=== PATIENT | female | born 1950 | race Caucasian/White ===

== ENCOUNTER 2017-01-16 18:18 | Emergency (ER) | payer MEDICARE, OTHER ==
[~2017-01-16] VITALS: Ht 162.6 cm; Wt 68.0 kg
[~2017-01-16 18:18] MED LIST: ACYC800T PO; CIPR500S2 PO; ESCT10T PO; EST45C VG; ESTR0.3T PO; HYDR-3720 PO
[2017-01-16] MEDS ORDERED: TETANUS,DIPTH,PERTUSS P/F (BOOSTRIX) 0.5 ML VIAL IM STA (18:47)
--- NOTE | 2017-01-16 18:47 | ED Upper Extremity ---
General Chief Complaint: Laceration Stated Complaint: RT THUMB LACERATION Source: patient Exam Limitations: no limitations History of Present Illness Time seen by provider: 18:38 Initial Comments Here with report of thumb laceration to the right thumb. She was opening a pop top on a can of chicken gravy and she asked him to cut her finger on the side. Tetanus is not up-to-date. Bleeding is controlled with direct pressure. Denies other injury. Onset: just prior to arrival (1 hour ago) Severity: mild Pain/Injury Location: right thumb Method of Injury: incised Modifying Factors: Improves With Immobilization, Worse With Movement, Improves With Rest Allergies and Home Medications Allergies Coded Allergies: Prednisone (Unverified Allergy, 01/22/11) Home Medications Ciprofloxacin 500 Mg/5 Ml [facility]rec, 500 MG PO BID for 7 Days, (Reported) Escitalopram Oxalate 10 Mg Tablet, 1 EACH PO DAILY, (Reported) Estrogens Conjugated 0.3 Mg Tab, 0.3 MG PO DAILY, (Reported) Estrogens Conjugated 45 Gm Cr, 1 GM VG HS for 14 Days, (Reported) 1 APPLICATORFUL Hydrocodone Bit/Acetaminophen 1 Ea Tab, 1-2 EA PO Q4HR PRN, (Reported) Constitutional: no symptoms reported Respiratory: no symptoms reported Cardiovascular: no symptoms reported Musculoskeletal: no symptoms reported Skin: see HPI, lesions Past Kccseme-Lnptbk-Yfkemt Hx Patient Social History Alcohol Use: Denies Use Recreational Drug Use: No Smoking Status: Never a Smoker Recent Foreign Travel: No Contact w/Someone Who Travel: No Reproductive System Hx Reproductive Disorders: No Psychosocial History of Psychiatric Problem: Yes Behavioral Health Disorders: Depression Family Medical History Significant Family History: No Pertinent Family Hx Physical Exam Vital Signs Vital Sign - Last 12Hours 01/16/17 18:45 Temp 98.1 Pulse 78 Resp 18 B/P (MAP) 123/81 Pulse Ox 97 O2 Delivery Room Air Capillary Refill : General Appearance: WD/WN, no apparent distress Cardiovascular: regular rate, rhythm, no murmur Respiratory: lungs clear, normal breath sounds Hand: Right, laceration (right thumb with curvilinear 1.5 cm laceration that is superficial) Neurologic/Psychiatric: alert, oriented x 3 Skin: normal color, warm/dry Laceration Repair : Wound Location: Upper Extremities Other Wound Location Right thumb index finger side. Wound Length (cm): 1.5 Wound's Depth, Shape: superficial Wound Explored: contaminated Irrigated w/ Saline (ccs): 20 Betadine Prep?: No Other Closure Supply: Wound Adhesive Progress Washed with Betasept and copious fluid. Closed with skin glue by Mingo Winchester APRN. Progress/Results/Core Measures Results/Orders My Orders Orders - ALISON PERDUE MD Dipht,Pertuss(Acell),Tet Adult (Boostrix (01/16/17 18:47) Vital Signs/I&O Vital Sign - Last 12Hours 01/16/17 18:45 Temp 98.1 Pulse 78 Resp 18 B/P (MAP) 123/81 Pulse Ox 97 O2 Delivery Room Air Progress Note : Progress Note Seen and evaluated. Right thumb laceration cleaned and repaired by Mingo Winchester APRN. Close skin glue. Tetanus updated. Discharged home with return precautions. Patient verbalize understanding instructions and agreement with plan. Departure Impression Impression: Primary Impression: Thumb laceration Qualified Codes: S61.011A - Laceration without foreign body of right thumb without damage to nail, initial encounter Disposition: 01 HOME, SELF-CARE Condition: Improved Departure-Patient Inst. Decision time for Depature: 18:51 Referrals: CHARITO JEFFERSON MD (PCP/Family) Primary Care Physician Patient Instructions: Laceration Repair With Glue (DC) Add. Discharge Instructions: All discharge instructions reviewed with patient and/or family. Voiced understanding. Keep wound clean and dry. You may shower but do not soak wound for prolonged periods of time. Skin glue will come off over the next 4-5 days. Do not apply antibiotics over the wound. You may use a dry Band-Aid over wound protect the wound. Return for worse pain, fever, red streaks up the hand, foul-smelling drainage or other concerns as needed. Your tetanus shot was updated today. ALISON PERDUE MD Jan 16, 2017 18:47
[2017-01-16 19:04] VITALS: BP 123/81
== END 2017-01-16 19:03 | disposition home or self-care (01) ==
LOC: EDUNIT# 18:18 → ER 18:20
DX: S61.011A Laceration without foreign body of right thumb without damage to nail, initial encounter (principal); F32.9 Major depressive disorder, single episode, unspecified; Z23 Encounter for immunization; W45.8XXA Other foreign body or object entering through skin, initial encounter
CPT/HCPCS: 12001; 90471; 90715

== ENCOUNTER → 2018-02-24 | Outpatient (CLI) | payer MEDICARE, OTHER ==
--- NOTE | 2018-02-24 12:49 | Diagnostic Imaging Report ---
EXAMINATION: Left elbow at 10:54 a.m. INDICATION: Elbow pain. FINDINGS: Three views were obtained. There are no prior studies available for comparison. There is no fracture, dislocation, or acute bony abnormality evident. However on the lateral view, there are few small calcific densities lying anterior to the distal humerus. It is possible that these could be within the joint space and these may represent loose bodies. The elbow joint itself is fairly well maintained. The soft tissues are unremarkable. IMPRESSION: 1. There is no evidence for an acute bony abnormality. 2. The calcific densities lying anterior to the distal humerus seen on the lateral view only may be intra-articular. MRI would be recommended for further evaluation. Dictated by: Dictated on workstation # [id number]
== END ==
LOC: RAD 10:19
PROVIDERS: ATTEND Family Medicine
DX: M25.522 Pain in left elbow (principal)
CPT/HCPCS: 73080

== ENCOUNTER → 2018-03-19 | Outpatient (CLI) | payer MEDICARE, OTHER ==
--- NOTE | 2018-03-19 11:46 | Diagnostic Imaging Report ---
Indication: Abnormal screening mammogram one year ago on 02/27/2017. Screening mammogram recommended additional mammographic views however patient failed to return for additional views. Patient returns today for a bilateral breast ultrasound. Right breast: Sonographic interrogation of the upper right breast was performed from essentially the 9 o'clock to 3 o'clock location as well as retroareolar region. No sonographic abnormality is seen. No solid or cystic mass is detected. Left breast: All 4 quadrants of the left breast as well as retroareolar and axillary regions was evaluated. No solid or cystic mass is seen. No sonographic abnormality is identified Impression: BI-RADS category 0 No sonographic abnormality is detected. Diagnostic mammography would still be recommended, per report one year ago to ensure stability of previously noted densities noted mammographically. ACR BI-RADS Category 0: Incomplete. (Needs additional imaging evaluation). Result letter will be mailed to the patient. Note: At least 10% of breast cancer is not imaged by mammography. Dictated by: Dictated on workstation # [id number]
== END ==
LOC: RAD 09:46
PROVIDERS: ATTEND Family Medicine
DX: N64.89 Other specified disorders of breast (principal)

== ENCOUNTER → 2020-02-29 | Outpatient (CLI) | payer MEDICARE, OTHER ==
--- NOTE | 2020-02-29 15:04 | Diagnostic Imaging Report ---
INDICATION: Postmenopausal female COMPARISON: None FINDINGS: AP Spine L1-L4: [BMD (g/cm2): 1.098] [T-Score: -0.9] [Z-Score: 0.6] [BMD Previous: NA] [BMD % Change: NA] LT Hip Neck: [BMD (g/cm2): 0.795] [T-Score: -1.8] [Z-Score: -0.2] LT Hip Total: [BMD (g/cm2):0.861] [T-Score:-1.2] [Z-Score: 0.2] [BMD Previous: NA] [BMD % Change: NA] RT Hip Neck: [BMD (g/cm2):0.806] [T-Score:-1.7] [Z-Score:-0.1] RT Hip Total: [BMD (g/cm2):0.818] [T-score:-1.5] [Z-Score:-0.2] [BMD Previous:NA] [BMD % Change:NA] *Indicates significant change from prior examination based on 95% confidence level. World Health Organization criteria for BMD interpretation classify patients as Normal (T-score at or above -1.0), Osteopenic (T-score between -1.0 and -2.5) or Osteoporotic (T-score at or below -2.5). LIMITATIONS AND MODIFICATION: None. FRACTURE RISK (FRAX SCORE): The ten year probability of (%): Major Osteoporotic Fracture: [10.7] Hip Fracture: [1.8] IMPRESSION: 1. Osteopenia (Low bone mass). 2. Baseline examination. 3. See below National Osteoporosis Foundation guidelines on when to potentially initiate pharmacologic therapy. Based on the National Osteoporosis Foundation Guidelines, pharmacologic treatment should be initiated in any of the following, unless clinical conditions suggest otherwise: * Any patient with prior fragility fracture of the hip or vertebrae. A spine fracture indicates 5X risk for subsequent spine fracture and 2X risk for subsequent hip fracture. * Osteoporosis (T-score <-2.5). * Postmenopausal women and men age 50 and older with low bone mass/osteopenia (T-score between -1.0 and -2.5) by DXA and 10-year major osteoporotic fracture greater than 20% or a 10-year probability of hip fracture greater than 3%. These fracture risks are supplied above in the FRAX score, if applicable. * Clinician judgement and/or patient preferences may indicate treatment for people with 10-year fracture probabilities above or below these levels. Dictated by: Dictated on workstation # [id number]
--- NOTE | 2020-02-29 15:05 | Diagnostic Imaging Report ---
PROCEDURE: US carotid duplex, bilateral. TECHNIQUE: Multiple real-time grayscale images were obtained over the carotid arteries in various projections, bilaterally. Additional spectral analysis and color Doppler duplex images were also obtained. INDICATION: Carotid bruit. FINDINGS: There is mild plaquing at the right carotid bifurcation. Velocities are normal bilaterally. No velocity elevation or stenosis is detected. Both vertebral arteries show antegrade flow. IMPRESSION: No evidence of a hemodynamically significant stenosis. Parameters based on the consensus panel Chan-Scale and Doppler ultrasound criteria published February 2003, Radiology, Volume 229. DOPPLER (peak systolic velocity M/S Right Left CCA .87 .93 ICA Proximal .96 .57 ICA Mid .77 .77 ICA Distal .76 1.0 RATIO 1.1 1.1 ECA 1.3 1.1 VERT .53 .47 Dictated by: Dictated on workstation # [id number]
== END ==
LOC: RAD 13:30
PROVIDERS: ATTEND Family Medicine
DX: M85.80 Other specified disorders of bone density and structure, unspecified site (principal); R09.89 Other specified symptoms and signs involving the circulatory and respiratory systems; N95.9 Unspecified menopausal and perimenopausal disorder
CPT/HCPCS: 77080; 93880

== ENCOUNTER → 2022-03-12 | Outpatient (CLI) | payer MEDICARE, OTHER ==
--- NOTE | 2022-03-12 12:00 | Diagnostic Imaging Report ---
INDICATION: 72-year-old postmenopausal female. COMPARISON: 02/29/2020 FINDINGS: AP Spine L1-L4: [BMD (g/cm2): 1.133] [T-Score: -0.6] [Z-Score: 1.1] [BMD Previous: 1.098] [BMD % Change: 3.2] LT Hip Neck: [BMD (g/cm2): 0.890] [T-Score: -1.4] [Z-Score: 0.4] LT Hip Total: [BMD (g/cm2):0.896] [T-Score:-0.9] [Z-Score: 0.7] [BMD Previous: 0.861] [BMD % Change: 4.1] RT Hip Neck: [BMD (g/cm2):0.809] [T-Score:-1.6] [Z-Score:0.1] RT Hip Total: [BMD (g/cm2):0.850] [T-score:-1.2] [Z-Score:0.3] [BMD Previous:0.818] [BMD % Change:3.9] *Indicates significant change from prior examination based on 95% confidence level. World Health Organization criteria for BMD interpretation classify patients as Normal (T-score at or above -1.0), Osteopenic (T-score between -1.0 and -2.5) or Osteoporotic (T-score at or below -2.5). LIMITATIONS AND MODIFICATION: None. FRACTURE RISK (FRAX SCORE): The ten year probability of (%): Major Osteoporotic Fracture: [11.1] Hip Fracture: [2.0] IMPRESSION: 1. Osteopenia (Low bone mass). 2. There has been a statistically significant increase in BMD since prior exam, detailed above. 3. See below National Osteoporosis Foundation guidelines on when to potentially initiate pharmacologic therapy. Based on the National Osteoporosis Foundation Guidelines, pharmacologic treatment should be initiated in any of the following, unless clinical conditions suggest otherwise: * Any patient with prior fragility fracture of the hip or vertebrae. A spine fracture indicates 5X risk for subsequent spine fracture and 2X risk for subsequent hip fracture. * Osteoporosis (T-score <-2.5). * Postmenopausal women and men age 50 and older with low bone mass/osteopenia (T-score between -1.0 and -2.5) by DXA and 10-year major osteoporotic fracture greater than 20% or a 10-year probability of hip fracture greater than 3%. These fracture risks are supplied above in the FRAX score, if applicable. * Clinician judgement and/or patient preferences may indicate treatment for people with 10-year fracture probabilities above or below these levels. Dictated by: Dictated on workstation # [id number]
== END ==
LOC: RAD 09:41
PROVIDERS: ATTEND Family Medicine
DX: M85.80 Other specified disorders of bone density and structure, unspecified site (principal); Z78.0 Asymptomatic menopausal state
CPT/HCPCS: 77080

== ENCOUNTER 2022-05-03 05:33 | Outpatient (CLI) | payer MEDICARE, OTHER ==
[~2022-05-03] VITALS: Ht 162.6 cm; Wt 65.3 kg
[2022-05-03] MEDS ORDERED: ALEN5TAB6 PO (12:37)
[2022-05-03] MEDS ORDERED: BIOT5000 PO (12:37)
[2022-05-03] MEDS ORDERED: MULT-593 PO (12:37)
[2022-05-03] MEDS ORDERED: MAGN250T13 PO (12:37)
[2022-05-03] MEDS ORDERED: VITA-259 PO (12:37)
[2022-05-03] MEDS ORDERED: CALC-697 PO (12:37)
[2022-05-03] MEDS ORDERED: FERR-84 PO (12:37)
[2022-05-03] MEDS ORDERED: FOLI0.4T6 PO (12:37)
[2022-05-03] MEDS ORDERED: ASCO-341 PO (12:37)
[2022-05-03] MEDS ORDERED: PANT40TA52 PO (12:37)
[2022-05-03] MEDS ORDERED: CHOL200012 PO (12:37)
[2022-05-03] MEDS ORDERED: ESCI-2 PO (12:37)
[2022-05-03] MEDS ORDERED: ACYC-108 PO (12:37)
== END 2022-05-03 12:41 | disposition home or self-care (01) ==
LOC: PREOP 05:33
PROVIDERS: ATTEND Internal Medicine
DX: Z01.818 Encounter for other preprocedural examination (principal); D50.9 Iron deficiency anemia, unspecified; R19.5 Other fecal abnormalities

== ENCOUNTER 2022-05-10 10:05 | Day surgery (SDC) | payer MEDICARE, OTHER ==
--- NOTE | 2022-05-02 16:15 | HISTORY AND PHYSICAL ---
PANENDOSCOPY HISTORY AND PHYSICAL HISTORY OF PRESENT ILLNESS: The patient is a 72-year-old white female referred by Dr. Suarez for a diagnostic panendoscopy due to recently diagnosed significant iron deficiency anemia, reporting that she tested 3 stools and all were positive for occult blood. She reports one other colonoscopy over 15 years ago. She does not recall if there were any abnormalities at that time. She is not aware of any family history for colon cancer or other GI tract malignancy or inflammatory bowel disease. She denies any antiplatelet or aspirin usage. PAST MEDICAL HISTORY: Significant for major depressive disorder, which she feels to be in remission, osteoporosis and she has some herpes simplex outbreaks that she takes acyclovir for as needed. PAST SURGICAL HISTORY: Significant for partial hysterectomy for benign reasons in 1975. She has had corneal transplantation in 1984 and bladder sling surgery in 2010 with tubal ligation in 1974. FAMILY HISTORY: Mother of thyroid cancer, had osteoporosis, kidney disease and arthritis. Father of complication of coronary artery disease, also had arthritis. SOCIAL HISTORY: She denies any past smoking history. She is retired with no alcohol intake history either. REVIEW OF SYSTEMS: CONSTITUTIONAL: Denies night sweats, chills, fever or change in weight. PULMONARY: Denies cough, wheezing or shortness of breath. CARDIOVASCULAR: Denies chest discomfort, orthopnea, PND, pedal edema or syncope. GASTROINTESTINAL: As noted in the HPI. PHYSICAL EXAMINATION: GENERAL: Reveals a white female who appeared to be in no acute distress, although did appear pale. HEENT: Sclerae were nonicteric. Conjunctivae were pale. NECK: Revealed no JVD, adenopathy or bruits. CHEST: Clear to auscultation. ABDOMEN: Soft, supple, mild epigastric discomfort to palpation is present without rebound or guarding. No mass or other areas of abdominal discomfort noted. No organomegaly noted. Bowel sounds positive. EXTREMITIES: Revealed no cyanosis, clubbing or edema. ASSESSMENT: The patient is being set up for panendoscopy for diagnostic purposes due to significant iron deficiency anemia with occult positive blood in the stool. Prep instructions were given and questions were answered. Thank you for the referral of this pleasant lady. Job ID: [id number] DocumentID: [id number] Dictated Date: 05/02/2022 15:40:51 Credit Risk Analyst Date: 05/02/2022 16:01:00 Dictated By: ADDI AKERS MD [facility]
[~2022-05-10] VITALS: Ht 162 cm; Wt 65.3 kg
[~2022-05-10 10:05] MED LIST changes: +ACYC-108 PO; +ALEN5TAB6 PO; +ASCO-341 PO; +BIOT5000 PO; +CALC-697 PO; +CHOL200012 PO; +ESCI-2 PO; +FERR-84 PO; +FOLI0.4T6 PO; +MAGN250T13 PO; +MULT-593 PO; +PANT40TA52 PO; +VITA-259 PO
[2022-05-10] MEDS ORDERED: LACTATED RINGERS 1,000 ML IV STA (10:06)
[2022-05-10] MEDS ORDERED: HURRICAINE EXT TUBE (BENZOCAINE) ONE (10:18)
[2022-05-10 10:55] VITALS: BP 141/61
[2022-05-10] MEDS ORDERED: PROPOFOL INJECTION 50 ML IV ONE ×2 (11:03→11:24)
[2022-05-10] MEDS ORDERED: MIDAZOLAM 2 MG/2 ML (VERSED) VIAL ONE (11:04)
--- NOTE | 2022-05-10 11:08 | Pre-Op Note & Conscious Sedat ---
Pre-Operative Progress Note Date H&P Reviewed: May 10, 2022 Time H&P Reviewed: 11:07 History & Physical: H&P Reviewed, Patient Examed, No changes noted Pre-Op Diagnosis: fe deficiency anemia with GI Bleed Conscious Sedation Pre-Proced ASA Score 2 For ASA 3 and 4: Consider anesthesia and medical clearance. Also, for patients with a history of failed moderate sedation consider anesthesia. Airway Lungs Heart ASA score ASA 1: a normal healthy patient ASA 2: a patient with a mild systemic disease (mid diabetes, controlled hypertension, obesity ASA 3: a patient with a severe systemic disease that limits activity (angina, COPD, prior Myocardial infarction) ASA 4: a patient with an incapacitating disease that is a constant threat to life (CHF, renal failure) ASA 5: a moribund patient not expected to survive 24 hrs. (ruptured aneurysm) ASA 6: a declared brain- patient whose organs are being harvested. For emergent operations, add the letter E after the classification Mallampati Classification Grade 1 Sedation Plan Analgesia, Amnesia, Plan communicated to team members, Discussed options with patient/fam, Discussed risks with patient/fam The patient is an appropriate candidate to undergo the planned procedure, sedation, and anesthesia. The patient immediately re-assessed prior to indication. ADDI AKERS MD May 10, 2022 11:08
[2022-05-10 11:45] VITALS: BP 104/51
[2022-05-10 11:50] VITALS: BP 106/53
--- NOTE | 2022-05-10 11:51 | Anesthesia-General Post-Op ---
MAC Patient Condition Mental Status/LOC: Same as Preop Cardiovascular: Satisfactory Nausea/Vomiting: Absent Respiratory: Satisfactory Pain: Controlled Complications: Absent Post Op Complications Complications None Follow Up Care/Instructions Patient Instructions None needed. Anesthesiology Discharge Order Discharge Order Patient is doing well, no complaints, stable vital signs, no apparent adverse anesthesia problems. No complications reported per nursing. RAMESH BARRERA CRNA May 10, 2022 11:51
[2022-05-10 11:55] VITALS: BP 93/44
[2022-05-10 12:11] LABS: BASOPHILS % (AUTO) 1 % (0-10); EOSINOPHILS # (AUTO) 0.1 10^3/uL (0.0-0.3); EOSINOPHILS % (AUTO) 1 % (0-10); HEMATOCRIT 27 % (35-52); HEMOGLOBIN 7.8 g/dL (11.5-16.0); LYMPHOCYTES # (AUTO) 1.1 10^3/uL (1.0-4.0); LYMPHOCYTES % (AUTO) 17 % (12-44); MEAN CORPUSCULAR HEMOGLOBIN 21 pg (25-34); MEAN CORPUSCULAR HGB CONC 29 g/dL (32-36); MEAN CORPUSCULAR VOLUME 72 fL (80-99); MEAN PLATELET VOLUME 8.8 fL (9.0-12.2); MONOCYTES # (AUTO) 0.6 10^3/uL (0.0-1.0); MONOCYTES % (AUTO) 10 % (0-12); NEUTROPHILS # (AUTO) 4.6 10^3/uL (1.8-7.8); NEUTROPHILS % (AUTO) 71 % (42-75); PLATELET COUNT 301 10^3/uL (130-400); WHITE BLOOD COUNT 6.4 10^3/uL (4.3-11.0)
[2022-05-10] MEDS ORDERED: NS 100 ML (IVPB) BAG IV ONE (12:15)
[2022-05-10] MEDS ORDERED: IOHEXOL 350 MG/ML 100 ML (OMNIPAQUE 350) VIAL IV ONE (12:15)
[2022-05-10 12:44] LABS: ALBUMIN 3.5 GM/DL (3.2-4.5); BILIRUBIN,TOTAL 0.3 MG/DL (0.1-1.0); CALCIUM 8.5 MG/DL (8.5-10.1); CREATININE SERUM 0.79 MG/DL (0.60-1.30); POTASSIUM 4.1 MMOL/L (3.6-5.0)
--- NOTE | 2022-05-10 12:48 | Progress Note-Post Operative ---
Post-Procedure Note Physician (s)/Animal Services Officer (s) Physician ADDI AKERS MD Pre-Procedure Diagnosis Pre-Procedure Diagnosis: fe deficiency anemia with GI Bleed Post-Procedure Diagnosis Post-operative diagnosis: The endoscope was inserted into the oral cavity and direct visualization the esophagus is intubated. The endoscope was passed down the esophagus to the stomach and the second portion of the duodenum. A careful inspection was made as the endoscope was withdrawn. Findings: Posterior pharynx epiglottis arytenoid aperture and true and false vocal folds were unremarkable to visual inspection. Proximal mid and distal esophagus were unremarkable. The Z-line was approximately placed at 36 cm secondary to a moderate sized hiatal hernia with several centimeters of the cardia being present above the level of the diaphragm. There was no evidence for erosive esophagitis. There is no evidence for blood the upper GI tract or any potential bleeding sites the cardia fundus antrum pylorus and duodenal bulb were unremarkable. on gross inspection there appeared to be a little blunting of the usual villous architecture a biopsy was obtained and submitted for evidence for villous atrophy/sprue. No other abnormalities are noted on EGD. A/P 1. Moderate size hiatal hernia is present without evidence for erosive esophagitis this was an otherwise unremarkable EGD with no potential bleeding sites being identified. Gross inspection of the second portion of the duodenum suggested the possibility of villous atrophy so biopsy was obtained and submitted for histopathology. We then proceeded with colonoscopy. Prior to undergoing colonoscopy digital rectal evaluation was performed. Anal sphincter tone was normal and the perianal reflex was intact. No abnormalities other than findings consistent with Anterior rectocele were noted on digital inspection of the anal canal or distal rectal vault. the colonoscope was then inserted into the rectum and under direct association advanced to what appears to be the hepatic flexure where there was an annular mass narrow down to about a centimeter in size too small for passage of the scope. Careful inspection was made as the colonoscope was withdrawn quality the prep was good. Findings: There are no evidence for internal/external hemorrhoids in the rectum sigmoid colon descending colon and splenic flexure were unremarkable. Several small 4 to 5 mm sessile transverse colon sessile polyps were noted benign in appearance. Present to the level of the hepatic flexure was an annular mass compatible with adenocarcinoma the colon narrowing of the lumen down and about a centimeter in size too small to pass the scope. Biopsies were obtained and submitted for histopathology. A/P 1. Annular mass compatible with adenocarcinoma of the colon was present and appears to be at the level of the hepatic flexure. The ascending colon and cecum were not visualized secondary to luminal narrowing down about a centimeter in size. Orders for CMP CBC and a CEA level were obtained and the patient is in the process of getting a staging CT scan of the abdomen and pelvis. Discussed the need for surgery. Currently she is having no abdominal distention or symptoms to suggest obstruction. She was advised to adhere to a low residue diet discussed in detail with her son present. I will be discussing the case with Dr. BLAIR who will set up surgical referral. Sincerely, Addi Akers MD. CC: Dr. Kristen BLAIR. ADDI AKERS MD May 10, 2022 12:48
[2022-05-10 13:30] VITALS: BP 164/82
[2022-05-10 13:40] VITALS: BP 164/82
--- NOTE | 2022-05-10 14:37 | Diagnostic Imaging Report ---
EXAMINATION: CT abdomen and pelvis with intravenous contrast. TECHNIQUE: Multiple contiguous axial images were obtained through the abdomen and this is a after the uneventful administration of intravenous contrast. All CT scans use one or more of the following dose optimizing techniques: automated exposure control, MA and/or KvP adjustment based on patient size and exam type or iterative reconstruction. HISTORY: Colon cancer COMPARISON: None available. FINDINGS: Limited views of the lower thorax are unremarkable. There is a 5.1 x 5.8 cm caudate mass. There is a cyst at the gallbladder fossa. There is an 8 mm low attenuating lesion in hepatic dome. There is no biliary ductal dilation. Gallbladder is normal. Pancreas is normal. Spleen is normal. Adrenal glands are normal. There is a 7.2 x 4.0 cm mass in the right kidney. There is a cyst in the right kidney. There is no hydronephrosis. Urinary bladder is normal. There is focal wall thickening in the ascending colon. No free fluid or air. No abdominal or pelvic lymphadenopathy. Aorta is normal in caliber without aneurysm. There are no suspicious osseus lesions. IMPRESSION: 1. Malignant appearing mass in the caudate lobe with a smaller mass in the dome of the liver. 2. Large mass in the right kidney most consistent with renal cell carcinoma. 3. Mild focal wall thickening in the ascending colon may represent the colon mass seen on endoscopy. Dictated by: Dictated on workstation # [id number]
== END 2022-05-10 13:40 | disposition home or self-care (01) ==
LOC: ENDO 10:05
PROVIDERS: ATTEND Internal Medicine
DX: C18.9 Malignant neoplasm of colon, unspecified (principal); D50.0 Iron deficiency anemia secondary to blood loss (chronic); K31.89 Other diseases of stomach and duodenum; K44.9 Diaphragmatic hernia without obstruction or gangrene
CPT/HCPCS: 36415; 74177; 80053; 82378; 85025

== ENCOUNTER → 2022-06-20 | Outpatient (CLI) | payer MEDICARE, OTHER ==
[~2022-06-20] MED LIST changes: +HOLD METFORMIN - RECEIVED CONTRAST 20 ML VIAL IV SCH; +IOHEXOL 350 MG/ML 100 ML (OMNIPAQUE 350) VIAL IV ONE; +NS 100 ML (IVPB) BAG IV ONE
[2022-06-20 13:35] LABS: CREATININE SERUM 0.84 MG/DL (0.60-1.30)
--- NOTE | 2022-06-20 15:25 | Diagnostic Imaging Report ---
PROCEDURE: CT chest with contrast only. TECHNIQUE: Multiple contiguous axial images were obtained through the chest after administration of intravenous contrast. Auto Exposure Controls were utilized during the CT exam to meet ALARA standards for radiation dose reduction. INDICATION: Colon carcinoma. COMPARISON: No prior chest CT studies are available for comparison. No axillary lymphadenopathy is detected. No mediastinal or hilar lymphadenopathy is detected. No pericardial or pleural fluid is identified. There is a noncalcified nodule in the left lower lobe 10 mm in size. No other pulmonary nodules are detected. Upper abdomen again demonstrates a large mass in the caudate lobe of the liver measuring 6.1 x 6.4 cm compared with 5.4 x 5.6 cm on prior. Hepatic cysts are noted as well. A lesion in the dome of the right lobe of the liver appears to be increased in size measuring 1.8 cm compared with 0.9 cm. IMPRESSION: 1. Solitary pulmonary nodule left lower lobe, concerning for pulmonary metastasis. No thoracic lymphadenopathy is detected. 2. Enlarging hepatic masses, concerning for worsening hepatic metastatic disease. Dictated by: Dictated on workstation # [id number]
== END ==
LOC: RAD 12:56
PROVIDERS: ATTEND Clinical Nurse Specialist Oncology
DX: C18.9 Malignant neoplasm of colon, unspecified (principal); C78.7 Secondary malignant neoplasm of liver and intrahepatic bile duct; R91.1 Solitary pulmonary nodule
CPT/HCPCS: 36415; 71260; 82378; 82565; 84520

== ENCOUNTER 2022-12-25 08:21 | Emergency (ER) | payer MEDICARE, OTHER ==
[~2022-12-25] VITALS: Ht 162 cm; Wt 60.0 kg
[~2022-12-25 08:21] MED LIST changes: -HOLD METFORMIN - RECEIVED CONTRAST 20 ML VIAL IV SCH; -IOHEXOL 350 MG/ML 100 ML (OMNIPAQUE 350) VIAL IV ONE; -NS 100 ML (IVPB) BAG IV ONE
--- NOTE | 2022-12-25 08:42 | ED General ---
General Chief Complaint: Nasal Problems Stated Complaint: NOSEBLEED Nursing Triage Note: PT TO [facility] WITH CC OF NOSE BLEED FOR ABOUT 30 MIN, CA PT-COLON LIVER AND KIDNEY, SAME THING HAPPENED A FEW WEEKS AGO. 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 Pt states that nosebleed started spontaneously this morning and would not stop despite applying external pressure with tissues, which prompted her to call EMS. Pt states that she experienced a similar episode of nose bleeding two weeks ago. Pt states that it started spontaneously as well but was only from the right nare and the bleeding stopped after 20 minutes with external pressure with tissues. Pt is currently undergoing chemotherapy for metastatic colon cancer, last t reatment was yesterday. Pt notes that prior nosebleed occurred the day after chemotherapy as well. Pt denies any recent changes to her chemotherapy. Per Dr. Moreno's office, pt had blood work done yesterday. CBC and BMP were all within normal range, platelets were 230,000 and Hgb was 13. Denies taking any bloodthinners or other daily medications. Denies recent trauma, increased nasal congestion/nose blowing prior to episodes, any pain, CORRAL, fever, cough, nausea, and vomiting. Nasal clamp applied in room. Timing/Duration: 1 Hour Severity: Mild Associated Systoms: No Cough, No Fever/Chills, No Headaches, No Nausea/Vomiting (SUBHASH YU) Allergies and Home Medications Allergies Coded Allergies: prednisone (Unverified Allergy, Unknown, 02/29/20) Patient Home Medication List Home Medication List Reviewed: Yes (SUBHASH YU) Acyclovir (Acyclovir) 200 Mg Capsule, 200 MG PO PRN, (Reported) Entered as Reported by: LEIGH SUGGS on 05/03/22 1237 Alendronate Sodium (Alendronate Sodium) 5 Mg Tablet, 7 MG PO WEEK, (Reported) Entered as Reported by: LEIGH SUGGS on 05/03/22 1237 Ascorbic Acid/Multivit-Min (Emergen-C 1,000 mg Packet) 1,000 Mg Effpowdpkt, 1,000 MG PO DAILY, (Reported) Entered as Reported by: LEIGH SUGGS on 05/03/22 123 Biotin (Biotin) 5,000 Mcg Tab.rapdis, 5,000 MCG PO DAILY, (Reported) Entered as Reported by: LEIGH SUGGS on 05/03/22 123 Calcium Carbonate/Vitamin D3 (Calcium 1,000 + D3 Caplet) 1,000 Mg-20 Tablet, 1 EACH PO DAILY, (Reported) Entered as Reported by: LEIGH SUGGS on 05/03/22 123 Cholecalciferol (Vitamin D3) (D3-2000) 50 Mcg (2000 Unit) Capsule, 50 MCG PO DAILY, (Reported) Entered as Reported by: LEIGH SUGGS on 05/03/22 123 Escitalopram Oxalate (Escitalopram Oxalate) 10 Mg Tablet, 10 MG PO DAILY, (Reported) Entered as Reported by: LEIGH SUGGS on 05/03/22 123 Ferrous Sulfate (Iron) 325 Mg (65 Mg Iron) Tablet, 325 MG PO DAILY, (Reported) Entered as Reported by: LEIGH SUGGS on 05/03/22 123 Folic Acid (Folic Acid) 0.4 Mg Tablet, 0.4 MG PO DAILY, (Reported) Entered as Reported by: LEIGH SUGGS on 05/03/22 123 Magnesium Oxide (Magnesium) 250 Mg Tablet, 250 MG PO DAILY, (Reported) Entered as Reported by: LEIGH SUGGS on 05/03/22 123 Multivitamin with Minerals (Multiple Vitamin) 1 Each Tablet, 1 EACH PO DAILY, (Reported) Entered as Reported by: LEIGH SUGGS on 05/03/22 123 Pantoprazole Sodium (Pantoprazole Sodium) 40 Mg Tablet.dr, 40 MG PO DAILY, (Reported) Entered as Reported by: LEIGH SUGGS on 05/03/22 123 Vitamin E (Dl,Tocopheryl Acet) (Vitamin E) 180 Mg (400 Unit) Capsule, 400 MG PO DAILY, (Reported) Entered as Reported by: LEIGH SUGGS on 05/03/22 123 Review of Systems Review of Systems Constitutional: no symptoms reported; No chills, No fever EENTM: epistaxis; No nose pain Respiratory: no symptoms reported Cardiovascular: no symptoms reported Gastrointestinal: no symptoms reported Genitourinary: no symptoms reported Musculoskeletal: no symptoms reported Skin: no symptoms reported Psychiatric/Neurological: No Symptoms Reported Hematologic/Lymphatic: No Symptoms Reported Immunological/Allergic: no symptoms reported (SUBHASH YU) All Other Systems Reviewed Negative Unless Noted: Yes (SUBHASH YU) Past Wsxxbml-Ipbvor-Teorvf Hx Patient Social History Tobacco Use?: No Smoking Status: Former Smoker Substance use?: No Alcohol Use?: No (SUBHASH YU) Immunizations Up To Date First/Initial COVID19 Vaccinat: YES Second COVID19 Vaccination Jim: YES Third COVID19 Vaccination Date: YES (SUBHASH YU) Seasonal Allergies Seasonal Allergies: No (SUBHASH YU) Past Medical History Surgery/Hospitalization HX: CA- LIVER, COLON, AND KIDNEY, PARTIAL HYST, COLOSTOMY AND COLON RESECTION Surgeries: No Abdominal (Colon resection and colostomy ), Hysterectomy (partial) Respiratory: No Cardiac: No Neurological: No Reproductive Disorders: No Genitourinary: No Gastrointestinal: No Musculoskeletal: Yes Endocrine: No HEENT: No Cancer: Yes Colon (metastatic to liver and kidney) Did You Recieve Any Treatments: Yes What Type of Treatment Did You: Chemotherapy, Surgical Intervention Psychosocial: Yes Depression Blood Disorders: No (SUBHASH YU) Family Medical History No Pertinent Family Hx (SUBHASH YU) Physical Exam Vital Signs Vital Signs - First Documented 12/25/22 08:24 Temp 36.3 Pulse 120 Resp 20 B/P (MAP) 178/109 (132) Pulse Ox 97 O2 Delivery Room Air (EARL MUSA MD) Vital Signs Capillary Refill : Less Than 3 Seconds (SUBHASH YU) Height, Weight, BMI Height: 5'4.00" Weight: 150lbs. oz. 68.750462fp; 22.00 BMI Method:Stated General Appearance: No Apparent Distress, WD/WN HEENT: PERRL/EOMI, Pharynx Normal (no active bleeding noted in posterior pharynx), Other (clotted blood visualized on bilateral nares, no active bleeding present; R>L; no trauma to nares or nose noted) Respiratory: Lungs Clear, Normal Breath Sounds, No Accessory Muscle Use, No Respiratory Distress Cardiovascular: Regular Rate, Rhythm, No Murmur Neurologic/Psychiatric: Alert, Oriented x3, Normal Mood/Affect Skin: Normal Color, Warm/Dry Lymphatic: No Adenopathy (SUBHASH YU) Progress/Results/Core Measures Suspected Sepsis SIRS Temperature: Pulse: 120 Respiratory Rate: 20 Blood Pressure 178 /109 Mean: 132 (SUBHASH YU) Results/Orders My Orders Orders - EARL MUSA MD Ondansetron Oral Dissolve Tab (Ondanset (12/25/22 09:00) Oxymetazoline 0.05% Nasal [place] (Oxymetaz (12/25/22 21:00) (EARL MUSA MD) Medications Given in ED Current Medications Medications Dose Ordered Sig/[place] Route Start Time Stop Time Status Last Admin Dose Admin Ondansetron HCl 4 mg ONCE ONCE PO 12/25/22 09:00 12/25/22 09:01 DC 12/25/22 08:54 4 MG (EARL MUSA MD) Vital Signs/I&O 12/25/22 08:24 Temp 36.3 Pulse 120 Resp 20 B/P (MAP) 178/109 (132) Pulse Ox 97 O2 Delivery Room Air (EARL MUSA MD) Vital Signs/I&O Capillary Refill : Less Than 3 Seconds (SUBHASH YU) Blood Pressure Mean: 132 Progress Note : Time: 10:23 (EARL MUSA MD) Departure Impression Primary Impression: Epistaxis Disposition: 01 HOME, SELF-CARE Condition: Improved Departure-Patient Inst. Decision time for Depature: 10:36 (EARL MUSA MD) Referrals: OLENA BLAIR MD (PCP/Family) Primary Care Physician Patient Instructions: Nosebleeds (DC) Add. Discharge Instructions: Drink plenty of fluids to stay well-hydrated. You can get xjco-qqu-otwckqm saline gel Q-tips to use just inside your nose. This will help keep the tissues of the nose nice and moist. Try not to blow your nose for the rest of today and this evening. If you have repeat nosebleed, you can apply the clamp for 15 minutes to see if you can get it to stop, if it continues please return to the emergency department for reevaluation. Follow-up with Dr. BALIR as needed. Verification and Attestation of Medical Student E/M Service A medical student performed and documented this service in my presence. I reviewed and verified all information documented by the medical student and made modifications to such information, when appropriate. I personally performed the physical exam and medical decision making. Earl Musa, Dec 25, 2022,10:38 (EARL MUSA MD) Copy Copies To 1: OLENA BLAIR MD Copies To 2: JOSE LOYOLA TAYLOR Dec 25, 2022 08:41 EARL MUSA MD Dec 25, 2022 10:23
[2022-12-25] MEDS ORDERED: ONDANSETRON INJECTION 4 MG/2 ML (SDV) IVP ONE (08:45)
[2022-12-25] MEDS ORDERED: ONDANSETRON 4 MG ORAL DISSOLVE TABLET PO ONE (09:00)
[2022-12-25] MEDS ORDERED: OXYMETAZOLINE 0.05% NASAL SPRAY 30 ML BTL ONE (09:33)
[2022-12-25 10:55] VITALS: BP 142/69
[2022-12-25] MEDS ORDERED: OXYMETAZOLINE 0.05% NASAL SPRAY 30 ML BTL SCH (21:00)
== END 2022-12-25 10:55 | disposition home or self-care (01) ==
LOC: EDUNIT# 08:21 → ER 08:22
DX: R04.0 Epistaxis (principal); Z90.49 Acquired absence of other specified parts of digestive tract; Z87.891 Personal history of nicotine dependence; Z79.899 Other long term (current) drug therapy
CPT/HCPCS: 99284